=== PATIENT | female | born 1990 | race Caucasian/White ===

== ENCOUNTER 2017-12-18 03:57 | Inpatient (IN) | payer OTHER ==
[~2017-12-18] VITALS: Ht 166.4 cm; Wt 88.0 kg
[~2017-12-18 03:57] MED LIST: LEVO1TAB31 PO; LOR5 PO; SERT-179 PO; TOBROD OP
[2017-12-18] MEDS ORDERED: OXYTOCIN 30 UNIT/D5LR 500 ML 500 ML IV PRN ×2 (03:59→05:17)
[2017-12-18] MEDS ORDERED: APAP/HYDROCODONE 325/5 TAB PO PRN (04:45)
[2017-12-18] MEDS ORDERED: FAMOTIDINE(*) 20MG/50ML PREMIX 50 ML IVPB PRN (05:17)
[2017-12-18] MEDS ORDERED: fentaNYL CITR 100 MCG/2 ML AMP IVP PRN (05:20)
[2017-12-18] MEDS ORDERED: LIDOCAINE 1% LOCAL 300 MG/30ML INJ PRN (05:20)
[2017-12-18] MEDS ORDERED: METOCLOPRAMIDE 10 MG/2 ML SDV IVP PRN (05:20)
[2017-12-18] MEDS ORDERED: cefOXitin/DEX(*) 2GM/50ML PREM 50 ML IVPB PRN (05:20)
[2017-12-18] MEDS ORDERED: PENICILLIN G 5 MILLUN/100 ML 100 ML IVPB ONE (05:20)
[2017-12-18] MEDS ORDERED: LIDOCAINE/SOD BICARB 8.4% SYR SC PRN (05:20)
[2017-12-18 05:45] LABS: PLATELET COUNT, AUTOMATED 315 K/uL (150-450)
[2017-12-18] MEDS ORDERED: LIDOCAINE/PF 2% 200MG/10ML AMP 200 MG/10 ML AMPUL EPI PRN (05:45)
[2017-12-18] MEDS ORDERED: fentaNYL CITR 100 MCG/2 ML AMP IT PRN (05:45)
[2017-12-18] MEDS ORDERED: FENTANYL/ROPIVACAINE 100 ML BAG EPI PRN (05:45)
[2017-12-18] MEDS ORDERED: LIDO/EPI 2% MPF 1:200,000 20ML EPI PRN (05:45)
[2017-12-18] MEDS ORDERED: BUPIVACAINE 0.25% MPF INJ EPI PRN (05:45)
[2017-12-18] MEDS ORDERED: EPIDURAL KEYS XX PRN (05:47)
[2017-12-18] MEDS ORDERED: LR(*) 1000 ML BAG 0 ML ONE (06:03)
[2017-12-18] MEDS: LR(*) 1000 ML BAG 1,000 ML IV PRN ×2 (06:43→09:26)
--- NOTE | 2017-12-18 08:18 | Anesthesia OB Pre-Anes Eval ---
History of Present Illness Anesthesia Start Date: Dec 18, 2017 Anesthesia Start Time: 06:00 OB Anesthesia Diagnosis: spontaneous labor Complications: None known EDC: Dec 03, 2017 : 1 Para: 0 Pain Ratin Heart Tones: WNL Result Diagram: 12/18/17 0535 Height (Inches): 65 Weight (Pounds): 195 WNL Past Medical History Surgical History: no surgical history Attended Childbirth Classes?: Yes Hx Anesthesia Reactions: No Hx Family Anesthesia Reaction: No Current Medications: other (oral narco early am) Home Meds Reported Medications Tobramycin/Dexamethasone (Tobradex Eye Drops) 5 Ml Drops.susp, 5 ML OP 07/25/11 Levonorgestrel-Eth Estra (Aviane) 1 Tab Tablet, 1 TAB PO QDAY, 0 Refills 01/25/11 Sertraline Hcl (Sertraline Hcl) 100 Mg Tablet, 100 MG PO QDAY, 0 Refills 01/25/11 Allergies: Coded Allergies: No Known Allergies (Verified Allergy, Mild, 07/25/11) Anesthesia OB ROS Neurological: No migraines/headaches, No seizures, No neuropathy ENT: Denies Tooth caps, Denies Loose teeth, Denies Chipped teeth, Denies Dentures, Denies Bridges, Denies Retainers, Denies Veneers, Denies Implants, Denies Tongue ring Pulmonary: No asthma, No smoker (pks/day/yrs) Airway Class: ll Cardiovascular ROS: No edema, No arrhythmia GI ROS: clear liquids Last Solids Date: Dec 18, 2017 Last Solids Time: 05:00 ROS: No Herpes, No STD(s), No Liver Disease, No Renal Disease Endocrine ROS: No diabetes, No gestational diabetes, No thyroid disorder, other Musculoskeletal ROS: No low back pain, No low back injury, No scoliosis ASA Classification: 2 Assessment and Plan Anesthesia Plan: CSE Assessment Past Medical, Surgical, Family and Obstetric Histories reviewed. Please see ACOG chart. Epidural anesthesia risks, complications and benefits explained to patient's satisfaction for labor and vaginal delivery and/or section. General anesthesia risks and benefits explained to patient' s satisfaction. Questions invited, none asked. LELA CHEN CRNA Dec 18, 2017 08:18
--- NOTE | 2017-12-18 08:22 | History & Physical ---
History of Present Illness Age of Patient: 27 : 1 Para or TPAL: 0 EDC per LMP: Jan 03, 2018 Estimated Gestational Age: 37.5 Chief Complaint CONTRACTIONS History of Present Illness The patient is a 27 year old 1 para 0 admitted at 37 5/7 weeks estimated gestational age with an estimated date of delivery 01/03/18. Patient is admitted with complaint of contractions. No vaginal bleeding. Good movement and occasional contractions. She was evaluated for active labor. She had an uncomplicated course. Her record was reviewed. History Allergies: Coded Allergies: No Known Allergies (Verified Allergy, Mild, 07/25/11) Med Rec Home Meds Reported Medications Tobramycin/Dexamethasone (Tobradex Eye Drops) 5 Ml Drops.susp, 5 ML OP 07/25/11 Levonorgestrel-Eth Estra (Aviane) 1 Tab Tablet, 1 TAB PO QDAY, 0 Refills 01/25/11 Sertraline Hcl (Sertraline Hcl) 100 Mg Tablet, 100 MG PO QDAY, 0 Refills 01/25/11 Exam General Exam Cardiovascular: Regular Rate and Rhythm Respiratory: Clear to Auscultation Abdomen: Gravid - Non-Tender Extremities: No Edema Cervical Dialation: 10 Cervical Effacement (%): 100 Station: +1 Presentation: Vertex Uterine Contractions(Q min): 4 Uterine Contraction Strength: Strong Fetus Heart Tones: 120 Heart Tone Variabilty: Moderate FHT Accelerations: 15X15 FHT Category: I Medical Decision Making Data Points Result Diagram: 12/18/17 0535 Assessment and Plan Problems: (1) Active labor at term Assessment & Plan: spontaneous labor progressed to complete received epidural. will labor down anticipated vaginal delivery Copies to: JAY DON MD, JOHN MD Dec 18, 2017 08:22
--- NOTE | 2017-12-18 08:24 | Procedure Note ---
Anesthetic Placement Note Anesthesia Plan: CSE Permit for Anesthesia Signed: Yes Anesthesia Technique: Patient Sitting Anesthesia Prep: Chlorhexidine Interspace: L 3-4 Local Anesthetic: 1% Lidocaine, 25 Gauge Needle Amount Local - cc's: 2 Anesthesia Needle: 17g Touhy/Schliff Anesthesia Attempts: 1 Loss of Resistance: Air Depth of KINSEY (cm): 5 Epidural Needle Placement: No CSF, No Blood, No Parasthesia Intrathecal Needle: 27 Gauge Pencan Cerebral Spinal Fluid: Yes, Clear Catheter Insertion (cm): 8 Catheter Type: Diallo - Spring Wound Epidural Dressing: Tegaderm, Tape, Adhesive [place] Anesthesia Tray: Lot Number ([id number]), Expiration Date (2019-01-19), Reference Number ([id number]) Anesthesia Medications: Intrathecal Dose: mcg Fentanyl (15), mg Marcaine MPF (1.75), Time (0611) Epidural Test Dose: 1.5 Lido/Epi (1:200,000), Dose - mL (2), Time (0633), Negative Epidural Loading Dose: 0.2% Ropivicaine, With Fentanyl 2mcg/ml, Dose - ml (0635 ), Time Epidural Infusion: 0.2% Ropivicaine, With Fentanyl 2mcg/ml, Start Time: (0635) Epidural Pump Setting: Bolus Dose - mL (5), Lockout - Minutes (20), Maintenance Rate - mL/hr (6), Maximum per Hour - mL (21) Complications: None Comment: Tolerated procedure well without apparent anesthetic complications. LP site clear, no redness or edema. Denies headache or any residual paresthesia. Vital Signs Stable, Patient comfortable and condition stable. LELA CHEN CRNA Dec 18, 2017 08:23
[2017-12-18 08:30] VITALS: BP 101/69; Ht 166.4 cm; Wt 88.0 kg
--- NOTE | 2017-12-18 08:32 | Anesthesia Progress Note ---
Progress/Maintenance Anesthesia Note Date: Dec 18, 2017 Anesthesia Note Time: 08:00 Pain Intensity: 0 Pump: On Pump Rate (ML/HR): 6 Sensory Level: T-12 Motor Level: Bending Knees-Bilateral Dilatation: 10 Position: Right, Tilt Assessment and Plan Assessment Continues to be comfortable, does not feel contractions. Attempting to sleep LELA CHEN CRNA Dec 18, 2017 08:32
[2017-12-18] MEDS ORDERED: PREN-127 PO (08:50)
[2017-12-18] MEDS ORDERED: PENICILLIN G 2.5 MILLUN/100 ML 100 ML IVPB SCH (10:00)
[2017-12-18] MEDS ORDERED: BUPIVACAINE 0.5% INJ 30ML VIAL ONE (10:23)
--- NOTE | 2017-12-18 10:34 | Anesthesia Progress Note ---
Progress/Maintenance Anesthesia Note Date: Dec 18, 2017 Anesthesia Note Time: 10:20 Pain Intensity: 2 Pump: On Pump Rate (ML/HR): 6 Sensory Level: T-12 Motor Level: Bending Knees-Bilateral, Other (pushing) Dilatation: 10 Drug Bolus: 0.5% Marcaine (3 ml), Other (Fentenyl 85 mcgs) Assessment and Plan Assessment Able to push well. Additional epidural medication given for delivery. LELA CHEN CRNA Dec 18, 2017 10:34
[2017-12-18] MEDS ORDERED: ACETAMINOPHEN 325 MG TAB PO PRN (11:05)
[2017-12-18] MEDS ORDERED: INFLUENZA VIRUS VAC 0.5 ML SYR IM ONLY ONE (11:05)
[2017-12-18] MEDS ORDERED: LANOLIN OINT 7 GM TUBE TP PRN (11:05)
[2017-12-18] MEDS ORDERED: HYDROmorphone HCL 2 MG TAB PO PRN (11:05)
[2017-12-18] MEDS ORDERED: GLYCERIN/WITCH HAZEL LEAF 1 PK TP PRN (11:05)
[2017-12-18] MEDS ORDERED: HYDROCORTISONE 2.5% CR 30GM TB PR PRN (11:05)
[2017-12-18] MEDS ORDERED: MAGNESIUM HYDROXIDE* 30ML UDCP PO PRN (11:05)
[2017-12-18] MEDS ORDERED: BENZOCAINE 20% 60 ML BTL TP PRN (11:05)
--- NOTE | 2017-12-18 11:08 | OB Delivery Note ---
Delivery Note Vaginal Delivery Type: Spont. Vaginal Delivery Delivery Date: Dec 18, 2017 Delivery Time: 10:42 Estimated Gestational Age(wks): 37.5 Delivery Anesthesia: Epidural Sex: Male Weight (gms): 3578 Apgars: 1 Minute (9), 5 Minute (10) Repair Needed: Laceration, Vaginal, Perineal, 2nd Degree Estimated Blood Loss: 400 Notes: SPONTANEOUS LABOR, RECEIVED EPIDURAL, PROGRESSED TO COMPLETE, LABORED DOWN PUSHED EFFECTIVELY. DELIVERED OVER MIDLINE LACERATION, NO COMPLICATIONS, PLACENTA DELIVERED INTACT SPONTANEOUSLY. REPAIR WITH 3-0 VICRYL Computational Theory Scientist in Attendence: No Copies to: JAY DON MD, JOHN MD Dec 18, 2017 11:08
--- NOTE | 2017-12-18 11:40 | Anesthesia Progress Note ---
Progress/Maintenance Anesthesia Note Date: Dec 18, 2017 Anesthesia Note Time: 10:50 Pain Intensity: 0 Pump: Off Sensory Level: t-12 Motor Level: Bending Knees-Bilateral Dilatation: 10 Position: Semi-Fowlers Assessment and Plan Assessment No further medication was given. Pt. was able to push well. Had excellent tolerance of delivery and repair work. Empty syringe attached to epidural catheter. RN agrees to remove with ambulation. Patient instructed the first ambulation is to be with help of nursing staff. Instructed to preform deep knee bends at bedside before walking. Anesthesia Stop Day: Dec 18, 2017 Anesthesia Stop Time: 10:50 LELA CHEN CRNA Dec 18, 2017 11:40
[2017-12-18] MEDS: IBUPROFEN 800 MG TAB PO SCH ×2 (12:00→20:32)
[2017-12-18] MEDS ORDERED: LR(*) 1000 ML BAG 1,000 ML ONE (15:46)
[2017-12-18 17:25] VITALS: BP 109/68
[2017-12-18] MEDS ORDERED: IBUP800T37 PO (18:20)
[2017-12-18] MEDS ORDERED: HYDR2TAB4 PO (18:20)
--- NOTE | 2017-12-18 18:22 | OB/GYN Discharge Summary ---
Discharge Summary Reason for Hosp/Final Diag: (1) Active labor at term Status: Resolved (2) care following vaginal delivery Hospital Course & Plan: Spontaneous labor and delivery, on day 1, Pain controlled, Tolerating diet and activity. Baby . Normal lochia. Lates Vital Signs Vital Signs Date Time Temp Pulse Resp B/P (MAP) Pulse Ox O2 Delivery O2 Flow Rate FiO2 12/18/17 17:25 97.9 68 18 109/68 (82) Room Air 12/18/17 08:30 96 Weight (Pounds): 194 Result Diagram: 12/18/17 0535 Condition: Improved Discharge: Home, Self Fdc Meds Active Scripts Ibuprofen (IBUPROFEN) 800 Mg Tablet, 1 TAB PO Q8H, #30 TAB 0 Refills Take with food every 8 hours. Prov:JAY DON MD 12/18/17 Hydromorphone Hcl (HYDROMORPHONE HCL) 2 Mg Tablet, 2-4 MG PO Q4H for PAIN, #20 TAB 0 Refills Prov:JAY DON MD 12/18/17 Reported Medications Vits W-Ca,Fe,Fa(<1MG) ( VITAMINS) 1 Each Tablet, 1 EACH PO DAILY, TAB 12/18/17 Discontinued Reported Medications Tobramycin/Dexamethasone (Tobradex Eye Drops) 5 Ml Drops.susp, 5 ML OP 07/25/11 Levonorgestrel-Eth Estra (Aviane) 1 Tab Tablet, 1 TAB PO QDAY, 0 Refills 01/25/11 Sertraline Hcl (Sertraline Hcl) 100 Mg Tablet, 100 MG PO QDAY, 0 Refills 01/25/11 [facility] [phone] Follow up in: 6 wks PP or PO Discharge Diet: As Tolerates Discharge Activity: Pelvic Rest Copies to: JAY DON MD, JOHN MD Dec 18, 2017 18:22
[2017-12-18 19:35] VITALS: BP 108/60
[2017-12-18] MEDS: DOCUSATE CALCIUM 240 MG CAP PO SCH (20:32)
[2017-12-19] MEDS ORDERED: PENICILLIN G 2.5 MILLUN/100 ML 100 ML IVPB SCH (02:00)
[2017-12-19] MEDS: IBUPROFEN 800 MG TAB PO SCH ×3 (03:32→20:24)
[2017-12-19 03:34] VITALS: BP 105/70
[2017-12-19 07:30] VITALS: BP 107/55
--- NOTE | 2017-12-19 08:19 | OB/GYN Progress Note ---
OB Subjective Progress Notes Subjective Pain controlled, Tolerating diet and activity. Baby . Normal lochia. GI: POS Flatus, NEG Nausea, NEG Vomiting : Voiding Well Pain: Mild OB Objective Physical Exam Vital Signs Date Time Temp Pulse Resp B/P (MAP) Pulse Ox O2 Delivery O2 Flow Rate FiO2 12/19/17 07:30 97.6 73 24 107/55 (72) 95 Room Air Cardiovascular: Regular Rate and Rhythm Respiratory: Clear to Auscultation Abdomen: Soft, Non-Tender, Non-Distended, Fundus Firm Extremities: No Edema Result Diagram: 12/19/17 0602 Assessment and Plan Post Day: 1 MANAGER FINANCIAL REPORTING Assessment: Stable MANAGER FINANCIAL REPORTING Plan: Discharge Home Today Problems: (1) Active labor at term Status: Resolved (2) care following vaginal delivery Assessment & Plan: Pain controlled, Tolerating diet and activity. Baby . Normal lochia. JAY DON MD Dec 19, 2017 08:19
[2017-12-19] MEDS: MULTIVITAMINS (PRENATAL) TAB PO SCH (09:01)
[2017-12-19] MEDS: DOCUSATE CALCIUM 240 MG CAP PO SCH ×2 (09:01→20:24)
[2017-12-19] MEDS ORDERED: MEASLES,MUMP,RUBELLA VAC 0.5ML SUBQ ONE (11:05)
[2017-12-19] MEDS ORDERED: DIPHTH/TETANUS/ACEL. PERTUSSIS IM ONLY ONE (11:05)
[2017-12-19 11:30] VITALS: BP 113/64
--- NOTE | 2017-12-19 11:45 | Anesthesia Post Eval Note ---
Anesthesia Post Eval Note Vital Signs Date Time Temp Pulse Resp B/P (MAP) Pulse Ox O2 Delivery O2 Flow Rate FiO2 12/19/17 07:30 97.6 73 24 107/55 (72) 95 Room Air Pt able to participate in Eval: Yes Cardiovascular Status: Satisfactory Respiratory Status: Satisfactory Pain Managment: Satisfactory PO Nausea/Vomiting: Satisfactory Temperature Management: Satisfactory Mental Status: Satisfactory, Alert, Oriented X3 Post-Op Hydration Status: Satisfactory, Tolerating PO Well Anesthesia Type: CSE Anesthesia Tolerance: Tolerated procedure well without apparent anesthetic complications. Mom is currently breast feeding. RN agrees to observe LP site clearwhen pt. ambulates. Denies headache or any residual paresthesia. Vital Signs Stable, Patient comfortable and condition stable. LELA CHEN CRNA Dec 19, 2017 11:45
[2017-12-19 15:00] VITALS: BP 107/58
[2017-12-19 19:34] VITALS: BP 115/61
[2017-12-20 03:30] VITALS: BP 123/56
[2017-12-20] MEDS: IBUPROFEN 800 MG TAB PO SCH (03:31)
[2017-12-20 07:11] VITALS: BP 107/64
--- NOTE | 2017-12-20 08:14 | OB/GYN Progress Note ---
OB Subjective Progress Notes Subjective Post day 2. Spontaneous labor, vaginal delivery. Tolerating diet and activity, baby breast feeding, normal lochia GI: POS Flatus, NEG Nausea, NEG Vomiting, NEG Bowel Movement : Voiding Well, Vaginal Bleeding, Scant Pain: Mild, Tolerating PO Pain Meds OB Objective Physical Exam Vital Signs Date Time Temp Pulse Resp B/P (MAP) Pulse Ox O2 Delivery O2 Flow Rate FiO2 12/20/17 07:11 97.3 67 16 107/64 (78) 12/20/17 00:15 Room Air 12/19/17 19:34 93 General Appearance: Alert/Awake/No Acute Distress Neurological: No Gross deficits Cardiovascular: Normal Rhythm & Peripheral Pulses, Regular Rate and Rhythm Respiratory: No Respiratory Distress, Clear to Auscultation Abdomen: Soft, Non-Tender, Non-Distended, Fundus Firm Musculoskeletal: No Weakness/Pain Extremities: No Cyanosis,Clubbing or Edema, No Edema Integumentary: Skin Intact without Lesions or Rash Result Diagram: 12/19/17 0602 Assessment and Plan Post Day: 2 BOX TRUCK WASHER Assessment: Stable BOX TRUCK WASHER Plan: Routine Post- Care, Discharge Home Today Problems: (1) Active labor at term Status: Resolved (2) care following vaginal delivery ZAHRA ORTIZ Dec 20, 2017 08:14
[2017-12-20] MEDS: DOCUSATE CALCIUM 240 MG CAP PO SCH (09:38)
[2017-12-20] MEDS: MULTIVITAMINS (PRENATAL) TAB PO SCH (09:38)
== END 2017-12-20 10:22 | disposition home or self-care (01) | DRG 775 ==
LOC: OB 03:57
PROVIDERS: ADMIT Student in an Organized Health Care Education/Training Program; ATTEND Student in an Organized Health Care Education/Training Program
PROC: 10E0XZZ Delivery of Products of Conception, External Approach (ICD-10-PCS; principal; 2017-12-18)
PROC: 0KQM0ZZ Repair Perineum Muscle, Open Approach (ICD-10-PCS; 2017-12-18)
DX: O70.1 Second degree perineal laceration during delivery (principal); Z37.0 Single live birth; Z3A.37 37 weeks gestation of pregnancy
CPT/HCPCS: 36415; 85025; 85027; 86850; 86900; 86901; J2540; J2590; J3010; J7120; S0020